=== PATIENT | female | born 1990 | race Asian ===

== ENCOUNTER 2023-07-21 09:59 | Inpatient (IN) ==
[2023-07-21] MEDS ORDERED: LIDOCAINE 1% LOCAL 20 ML VIAL INFIL PRN (10:56)
[2023-07-21] MEDS ORDERED: OXYTOCIN 30 UNITS/500 ML BAG IV PRN ×2 (10:56→16:46)
[2023-07-21] MEDS: LACTATED RINGER'S 1,000 ML IV PRN ×2 (11:08→12:10)
--- NOTE | 2023-07-21 11:11 | History & Physical Report ---
"Date of Service July 21, 2023 Assessment & Plan (1) Normal labor and delivery: Plan 32 y/o at 38w6d for labor and delivery Pitocin augmentation as needed for adequate contraction pattern Arom when indicated Epidural if requested Monitor tracing, category 1 History of Present Illness Primary Care Provider: NO PCP 32 y/o at 38w6d confirmed via LMP [facility]: 07/22/23 Here for normal labor and delivery. Contractions every 3-5 min. Complications with this include IUGR (resolved at 36wks) and Anemia (on iron). Has been attending OB appointments regularly. Currently taking no medications. GBS neg, Rubella immune, BTG: A+ Contractions: Yes Fluid or Blood loss: none Movement: active FHR baseline 145, moderate variability, accelerations present, decelerations absent Denies LOCO, CP, SOB, N/V/D, LE pain. and Delivery Plans Anemia- Vitron daily IUGR--> resolved at 36+wks. *Twice weekly NST/DVP@Dx *Weekly doppler@Dx *Growth US Q4wk @Dx *Deliver [id number] (unless abnml flow) *Deliver 37wks (less than 3rd%) OB Labs: Hemoglobin 12.7 g/dl (12.0-16.0) 04/29/23 Hematocrit 38.0 % (37.0-47.0) 04/29/23 Glucose 1 Hour 50 gm Load 107 mg/dl (70-130) 04/29/23 Initial OB Labs (11/28/22) Blood Type & RH A positive Antibody Screen Negative HCT/HGB 37.0/10.9 Platelets 260 Hep C IgG 13yrs+ Old negative Pap Test Chlamydia negative Gonorrhea negative Rubella immune RPR non reactive Urine Culture/Screen no growth HBsAg negative HIV negative MCV 88.9 NIPT negative (01/13/23) Allergies Allergy/AdvReac Type Severity Reaction Status Date / Time No Known Allergies Allergy Verified 07/21/23 10:11 Home Medications Medication Instructions Recorded Confirmed Type iron,carbonyl 65 mg-vitamin C 125 1 tab PO DAILY #30 tabs 05/26/23 07/21/23 Rx mg tablet,delayed release (Vitron-C) vits no.130-ferrous fum 1 tab PO DAILY 07/21/23 07/21/23 History 27 mg iron-folic acid 800 mcg tablet ( Vitamin) Patient History Surgical History (Updated 02/13/23 @ 13:50 by Lexie Montez) S/P wisdom tooth extraction Family History (Updated 02/13/23 @ 13:51 by Lexie Montez) Mother Hypertension Father Lymphoma Social History (Updated 02/13/23 @ 13:51 by Lexie Montez) Smoking Status: Never smoker Do You Dip or Chew Tobacco: No; Hx Alcohol Use: No Hx Substance Use: No Preferred Language: Nepalese 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 Skin: warm, dry, intact HEENT: NC/AT, anicteric sclera, conjunctiva without injection, moist mucus membranes Heart: +S1/S2, regular, no m/r/g Lungs: equal air entry bilaterally, no rales/rhonchi/wheezes Abd: +BS, soft, NT/ND, gravid uterus Cervical: 5/100/+1|, uterus mod. anterior Ext: warm, no clubbing/cyanosis or edema Neuro: nonfocal, patient AA&O x 4, speech intact, no facial droop, moving all extremities on command. Results & Data Vital Signs (Past 12 Hours) Vital Signs Temp Pulse Resp BP 07/21/23 10:14 16 07/21/23 10:14 36.4 C L 16 07/21/23 10:07 64 111/80 Supervising Physician Co-Signing Physician Notes Resident Physician Supervision Note: I was present with [Name of resident] during the history and exam. I discussed the case with the resident and agree with the findings and plan as documented in the note. Any exceptions or clarifications are listed here: [None] Documented By: Sarmad Renteria MD, FACOG Resident Activity Tracking Resident Involvement: Resident Care Provided Care Provided: OB Delivery"
[2023-07-21] MEDS ORDERED: SODIUM CHLORIDE 0.9% PF INJ 10 ML VIAL ONE (11:40)
[2023-07-21] MEDS ORDERED: fentaNYL citrate PF 100 MCG/2 ML VIAL ONE (11:40)
[2023-07-21] MEDS ORDERED: ePHEDrine sulfate 50 MG/ML AMP ONE (11:40)
[2023-07-21] MEDS ORDERED: BUPIVACAINE 0.25% PF 30 ML VIAL ONE (11:41)
[2023-07-21] MEDS ORDERED: LIDOCAINE 2%/EPINEPHRINE 1:200,000 20 ML PF ONE (11:41)
[2023-07-21] MEDS ORDERED: fentaNYL 2MCG/ML ROPIVACAINE 1.25MG/ML 100 ML BAG EPI ONE (11:41)
[2023-07-21 11:53] LABS: Hematocrit (blood only) 37.2 % (37.0-47.0); Hemoglobin 13.1 g/dl (12.0-16.0); Mean Corpuscular Hemoglobin 33.9 pg (25.0-34.0); Mean Corpuscular Hgb Conc 35.2 g/dL (32.0-36.0); Mean Corpuscular Volume 96.4 fL (80.0-100.0); Mean Platelet Volume 9.8 fL (9.4-12.4); Platelet Count 157 K/uL (130-400); RDW Coefficient of Variation 12.6 % (11.5-14.5); RDW Standard Deviation 44.5 fL (36.4-46.3); Red Blood Count 3.86 M/uL (4.20-5.40); White Blood Count 10.03 K/ul (4.8-10.8)
--- NOTE | 2023-07-21 12:22 | Anesthesiology Consultation ---
Date of Service July 21, 2023 Assessment & Plan Chart Review Chart Review: Acceptable Risk for Labor Epidural Consults Requested none History Height/Weight Height: 5 ft 5 in Weight: 66.224 kg Allergies Allergy/AdvReac Type Severity Reaction Status Date / Time No Known Allergies Allergy Verified 07/21/23 10:11 Medications Home Medications Medication Instructions Recorded Confirmed Last Taken ferrous fumarate-vitamin C 66 tab PO 02/13/23 07/14/23 Unknown mg-125 mg chewable tablet prenat.vits,aure,bey-sths-avkan 1 tab PO DAILY 02/13/23 07/14/23 Unknown iron,carbonyl 65 mg-vitamin C 125 1 tab PO DAILY #30 tabs 05/26/23 07/14/23 Unknown mg tablet,delayed release (Vitron-C) Active Medications Generic Name Dose Route Start Last Admin Trade Name Freq PRN Reason Stop Dose Admin Lactated Ringer's 1,000 mls @ 125 mls/hr 07/21/23 10:56 07/21/23 12:10 Lr IV 07/23/23 10:55 125 mls/hr .Q8H PRN Administration L&D Protocol Protocol Past Family History Family History (Updated 02/13/23 @ 13:51 by Lexie Montez) Mother Hypertension Father Lymphoma Past Surgical History Surgical History (Updated 02/13/23 @ 13:50 by Lexie Montez) S/P wisdom tooth extraction Social History Smoking Status: Never smoker Do You Dip or Chew Tobacco: No Hx Alcohol Use: No Hx Substance Use: No Physical Exam Vital Signs Last Vital Signs Temp 36.4 C L 07/21/23 10:14 Pulse 75 07/21/23 12:18 Resp 16 07/21/23 12:12 BP 98/52 L 07/21/23 12:18 Pulse Ox 98 07/21/23 12:16 Testing Laboratory Results 07/21/23 11:11
[2023-07-21] MEDS ORDERED: diphenhydrAMINE 50 MG/ML VIAL IV PRN (12:23)
[2023-07-21] MEDS ORDERED: NALBUPHINE HCL INJ 10 MG/ML AMP IV PRN (12:23)
[2023-07-21] MEDS ORDERED: ONDANSETRON INJ 2 MG/ML 2 ML VIAL IV PRN (12:23)
[2023-07-21] MEDS ORDERED: BUPIVACAINE 0.25% PF 30 ML VIAL EPI STA (12:23)
[2023-07-21] MEDS ORDERED: fentaNYL citrate PF 100 MCG/2 ML VIAL EPI STA (12:23)
[2023-07-21] MEDS ORDERED: SODIUM CHLORIDE 0.9% PF INJ 10 ML VIAL EPI STA (12:23)
[2023-07-21] MEDS ORDERED: LIDOCAINE 2% MPF LOCAL 5 ML VIAL EPI PRN (12:23)
[2023-07-21] MEDS ORDERED: fentaNYL citrate PF 100 MCG/2 ML VIAL EPI PRN (12:23)
[2023-07-21] MEDS ORDERED: fentaNYL 2MCG/ML ROPIVACAINE 1.25MG/ML 100 ML BAG EPI PRN (12:23)
[2023-07-21] MEDS ORDERED: LIDOCAINE 2%/EPINEPHRINE 1:200,000 20 ML PF EPI STA (12:23)
[2023-07-21] MEDS ORDERED: SODIUM CHLORIDE 0.9% PF INJ 10 ML VIAL EPI PRN (12:23)
[2023-07-21] MEDS ORDERED: ePHEDrine sulfate 50 MG/ML AMP IV PRN (12:23)
[2023-07-21] MEDS ORDERED: NALOXONE HCL 1 MG in SODIUM CHLORIDE 0.9% 1,000 ML IV PRN (12:23)
[2023-07-21] MEDS ORDERED: BUPIVACAINE 0.25% PF 30 ML VIAL EPI PRN (12:23)
[2023-07-21] MEDS ORDERED: ROPIVACAINE 0.5% PF 5 MG/ML 20 ML VIAL EPI PRN (12:23)
[2023-07-21] MEDS ORDERED: NALOXONE HCL 0.4 MG/1 ML VIAL/CARP IV PRN (12:23)
--- NOTE | 2023-07-21 16:35 | Delivery Summary ---
Vaginal Delivery Summary Date of Service July 21, 2023 Vaginal Delivery Summary Spontaneous vaginal delivery the patient was admitted in active labor requested epidural artificial rupture membranes and then later heart rate was category 2 she delivered a baby by pushing and delivering the baby in occiput anterior position fluid was clear the anterior shoulder was then easily to visualize gentle traction was then on the baby and maternal effort resulted in easy delivery no excessive force live vigorous female cord was then clamped and cut somewhat short and cord placenta was removed with gentle traction IV Pitocin started uterine tone improved hemostasis improved second- degree tear repaired with 3-0 Vicryl sponge and instrument counts correct estimated blood loss 300 mL
[2023-07-21] MEDS ORDERED: oxyCODONE/ACETAMINOPHEN 5mg/325mg TAB PO PRN (16:46)
[2023-07-21] MEDS ORDERED: bisacodyL 10 MG SUPP PR PRN (16:46)
[2023-07-21] MEDS ORDERED: BENZOCAINE 20% SPRY 85 APPLN/85 GM CAN EXT PRN (16:46)
[2023-07-21] MEDS ORDERED: HYDROCORTISONE ACETATE 25 MG SUPP PR PRN (16:46)
[2023-07-21] MEDS ORDERED: ACETAMINOPHEN 325 MG TAB PO PRN (16:46)
[2023-07-21] MEDS ORDERED: DIPHTHERIA/TETANUS/PERTUSSIS Vaccine (Tdap, Age 7+yrs) 0.5mL SYR/VL IM ONE (16:46)
--- NOTE | 2023-07-21 18:16 | Anesthesia Procedure Note ---
Date of Service July 21, 2023 Anesthesia Post Epidural Note Vital Signs Vital Signs: Temp Pulse Resp BP Pulse Ox 36.6 C 77 18 109/57 L 93 07/21/23 14:35 07/21/23 18:04 07/21/23 17:35 07/21/23 18:04 07/21/23 16:16 Notes Mental Status: alert / awake / arousable Nausea / Vomiting: adequately controlled Pain: adequately controlled Airway Patency, RR, SpO2: stable & adequate BP & HR: stable & adequate Hydration State: stable & adequate Neuraxial Anesthesia: was administered and sensory block is resolving Anesthetic Complications: no major complications apparent and Pt Satisfied with anesthetic care Epidural: Removed without complications and With tip intact
[2023-07-21] MEDS: DOCUSATE SODIUM 100 MG CAP PO SCH (21:20)
--- NOTE | 2023-07-22 06:38 | Obstetrical Progress Note ---
Date of Service July 22, 2023 Assessment & Plan (1) Encounter for care and examination after delivery: Plan s/p #1 Vital signs reviewed and WNL Blood tyoer A+ GBD neg, Rubella immune Pt doing well clinically Encourage ambulation Monitor and control pain with Motrin prn Regular , Monitor Lochia Encourage breast feeding Admission and Anticipated Discharge Date Admission Date: July 21, 2023 Supervising Physician Co-Signing Physician Notes Resident Physician Supervision Note: I was present with Dr. Puga during the history and exam. I discussed the case with the resident and agree with the findings and plan as documented in the note. Any exceptions or clarifications are listed here: [None] Documented By: Sarmad Renteria MD, FACOG Subjective 32 yo post- day 1 s/p Ambulation: ambulating normally Voiding: no voiding problems Passing Gas:: Yes Diet Tolerance:: regular diet Lochia:: Small Feeding Type: breast feeding Current Pain Level: minimal Resting comfortably this AM in NAD. Denies LOCO, CP, SOB, N/V/D, LE pain/swelling. Review of Systems Review of Systems: All systems reviewed & are unremarkable except as noted in HPI & below Physical Exam Physical Exam: General: patient resting comfortably, NAD, non-toxic in appearance, AA&O x 4, answers questions appropriately. Skin: warm, dry, intact HEENT: NC/AT, anicteric sclera, conjunctiva without injection, moist mucus membranes. Heart: +S1/S2, regular, no m/r/g Lungs: equal air entry bilaterally, no rales/rhonchi/wheezes Abd: +BS, soft, NT/ND, uterine fundus firm at umbilicus Ext: warm, no clubbing/cyanosis or edema, Maryam's neg. Neuro: nonfocal, patient AA&O x 4, speech intact, no facial droop, moving all extremities on command. Results & Data Vital Signs (Past 12 Hours) Vital Signs Temp Pulse Pulse Resp BP BP Pulse Ox 07/22/23 04:30 36.6 C 72 16 110/74 99 07/22/23 00:00 36.8 C 71 16 101/65 97 07/21/23 19:10 37.1 C 75 20 111/71 98 07/21/23 18:45 36.8 C 18 07/21/23 18:40 71 07/21/23 18:40 117/65 O2 Del Method 07/22/23 04:30 Room Air 07/22/23 00:00 Room Air 07/21/23 19:10 Room Air 07/21/23 18:45 07/21/23 18:40 07/21/23 18:40 Resident Activity Tracking Resident Involvement: Resident Care Provided Care Provided: OB Delivery
[2023-07-22] MEDS ORDERED: NON-FORMULARY MEDICATION (Iron,Carbonyl-Vitamin C [Vitron-C] 65 mg iron- 125 mg tablet,del PO SCH (09:00)
[2023-07-22] MEDS: FERROUS SULFATE 325 MG TAB PO SCH (09:47)
[2023-07-22] MEDS: PRENATAL VITAMIN 1 TAB PO SCH (09:47)
[2023-07-22] MEDS: DOCUSATE SODIUM 100 MG CAP PO SCH (09:47)
[2023-07-22] MEDS: ASCORBIC ACID 500 MG TAB PO SCH (09:47)
[2023-07-22] MEDS: IBUPROFEN 600 MG TAB PO PRN (13:28)
[2023-07-22] MEDS ORDERED: bisacodyL 5 MG TABEC PO SCH (20:00)
--- NOTE | 2023-07-23 05:05 | Obstetrical Progress Note ---
Date of Service July 23, 2023 Assessment & Plan (1) Encounter for care and examination after delivery: Plan s/p #2 Vital signs reviewed and WNL Blood type A+ GBD neg, Rubella immune Pt doing well clinically Encourage ambulation Monitor and control pain with Motrin prn Regular , Monitor Lochia Encourage breast feeding Discharge today, instruction reviewed with pt Admission and Anticipated Discharge Date Admission Date: July 21, 2023 Supervising Physician Co-Signing Physician Notes Resident Physician Supervision Note: I interviewed and examined the patient. Discussed with Dr. Nic Nichole and agree with findings and plan as documented in the note. Any exceptions or clarifications are listed here: Doing well. Plan d/c. Instructions given. Documented By: Marilu Murry MD, FACOG Subjective 32 yo post- day 2 s/p Ambulation: ambulating normally Voiding: no voiding problems Passing Gas: Yes Diet Tolerance:: regular diet Lochia:: Small Feeding Type: breast feeding Current Pain Level: minimal Resting comfortably this AM in NAD. Denies LOCO, CP, SOB, N/V/D, LE pain/swelling. Review of Systems Review of Systems: All systems reviewed & are unremarkable except as noted in HPI & below Physical Exam Physical Exam: General: patient resting comfortably, NAD, non-toxic in appearance, AA&O x 4, answers questions appropriately. Skin: warm, dry, intact HEENT: NC/AT, anicteric sclera, conjunctiva without injection, moist mucus membranes. Heart: +S1/S2, regular, no m/r/g Lungs: equal air entry bilaterally, no rales/rhonchi/wheezes Abd: +BS, soft, NT/ND, uterine fundus firm at umbilicus Ext: warm, no clubbing/cyanosis or edema, Maryam's neg. Neuro: nonfocal, patient AA&O x 4, speech intact, no facial droop, moving all extremities on command. Results & Data Vital Signs (Past 12 Hours) Vital Signs Temp Pulse Resp BP Pulse Ox O2 Del Method 07/23/23 03:50 36.6 C 61 18 107/73 98 Room Air 07/22/23 23:19 36.5 C 61 18 101/66 98 Room Air 07/22/23 19:27 36.4 C L 79 17 112/75 98 Room Air Resident Activity Tracking Resident Involvement: Resident Care Provided Care Provided: OB Delivery
[2023-07-23 06:38] LABS: Hematocrit (blood only) 32.1 % (37.0-47.0)
[2023-07-23] MEDS: FERROUS SULFATE 325 MG TAB PO SCH (08:35)
[2023-07-23] MEDS: PRENATAL VITAMIN 1 TAB PO SCH (08:35)
[2023-07-23] MEDS: DOCUSATE SODIUM 100 MG CAP PO SCH (08:36)
[2023-07-23] MEDS: ASCORBIC ACID 500 MG TAB PO SCH (08:36)
[2023-07-23] MEDS: IBUPROFEN 600 MG TAB PO PRN (11:00)
== END 2023-07-23 14:20 | disposition home or self-care (01) | DRG 807 ==
LOC: OPB 09:59 → 4S1 10:00 → 4E2 18:45